=== PATIENT | male | born 1970 | race Caucasian/White ===

== ENCOUNTER 2017-06-10 16:12 | Inpatient (IN) | payer BC, OTHER ==
[~2017-06-10] VITALS: Ht 185.4 cm; Wt 127.0 kg
--- NOTE | 2017-06-10 17:55 | ERA ---
ER Documentation Chief Complaint Date/Time DATE: 06/10/17 TIME: 17:55 Chief Complaint cp HPI The patient is 47-year-old male, presenting to the ER because of left-sided chest pain radiating down to her left arm at 3:30 PM while he was shopping, . He had similar symptoms previously about a month ago when he had DC and required 2 stent PCI at the [facility]. He denies chest pain with exertion/vomiting/diaphoresis, nausea, abdominal pain, vomiting, dysuria, diarrhea. He used to smoke until 9 months ago, denies drinking Past Medical history: CAD, hypertension, dyslipidemia Past surgical history: Two stent PCI ROS All systems reviewed and are negative except as per history of present illness. Medications Home Meds Reported Medications Clopidogrel Bisulfate* (Clopidogrel Bisulfate*) 75 Mg Tablet, 75 MG PO DAILY, # 30 TAB 06/10/17 Aspirin* (Steve Aspirin* Chew) 81 Mg Tab.chew, 81 MG PO DAILY, TAB.CHEW 06/10/17 Atorvastatin* (Atorvastatin*) 80 Mg Tablet, 40 MG PO QHS, #30 TAB 06/10/17 Carvedilol* (Carvedilol*) 6.25 Mg Tablet, 6.25 MG PO BID, #60 TAB 06/10/17 Isosorbide Mononitrate* (Isosorbide Mononitrate*) 60 Mg Tab.er.24h, 60 MG PO DAILY, TAB 06/10/17 Lisinopril* (Lisinopril*) 40 Mg Tablet, 40 MG PO DAILY, #30 TAB 06/10/17 Allergies Allergies: Coded Allergies: No Known Allergy (Unverified , 06/10/17) Physical Exam Vitals Vital Signs Date Time Temp Pulse Resp B/P Pulse Ox O2 Delivery O2 Flow Rate FiO2 06/10/17 20:20 97.8 81 18 174/81 99 06/10/17 18:06 Nasal Cannula 2 06/10/17 16:13 97.8 91 18 194/102 99 Physical Exam Const: No acute distress. Head: Atraumatic. Eyes: Normal Conjunctiva. ENT: Normal External Ears, Nose and Mouth. Neck: Full range of motion. No meningismus. Resp: Clear to auscultation bilaterally. Cardio: Regular rate and rhythm. Abd: Soft, non distended, normal bowel sounds, non tender. Skin: No petechiae or rashes. Back: No midline or flank tenderness. Ext: No cyanosis, or edema. Neur: Awake and alert. No focal deficit Psych: Normal Mood and Affect. Result Diagram: 06/10/17 1800 06/10/17 1800 Results 24 hrs Laboratory Tests Test 06/10/17 18:00 White Blood Count 12.110^3/ul Red Blood Count 5.2110^6/ul Hemoglobin 14.3g/dl Hematocrit 44.5% Mean Corpuscular Volume 85.4fl Mean Corpuscular Hemoglobin 27.4pg Mean Corpuscular Hemoglobin Concent 32.1g/dl Red Cell Distribution Width 13.2% Platelet Count 83827^3/UL Mean Platelet Volume 10.9fl Neutrophils % 67.6% Lymphocytes % 20.0% Monocytes % 7.9% Eosinophils % 3.3% Basophils % 0.7% Nucleated Red Blood Cells % 0.0/100WBC Neutrophils # 8.210^3/ul Lymphocytes # 2.410^3/ul Monocytes # 1.010^3/ul Eosinophils # 0.410^3/ul Basophils # 0.110^3/ul Nucleated Red Blood Cells # 0.010^3/ul Sodium Level 143mmol/L Potassium Level 4.4mmol/L Chloride Level 104mmol/L Carbon Dioxide Level 24mmol/L Anion Gap 19 Blood Urea Nitrogen 18mg/dl Creatinine 1.11mg/dl Glucose Level 97mg/dl Calcium Level 9.9mg/dl Troponin I < 0.012ng/ml Current Medications Medications (Trade) Dose Ordered Sig/Tatiana Route PRN Reason Start Time Stop Time Status Last Admin Dose Admin Aspirin (Aspirin) 325 mg ONCE ONCE PO 06/10/17 18:30 06/10/17 18:31 DC 06/10/17 18:20 Nitroglycerin (Nitroglycerin 2% Oint) 1 inch ONCE ONCE TD 06/10/17 18:30 06/10/17 18:31 DC 06/10/17 18:20 Procedures/[place] [id number] Radiology Main Line: [phone] DIAGNOSTIC IMAGING REPORT Patient: MAISHA DAVIS : 1970 Age: 47 Sex: M MR #: [id number] DOS: 06/10/17 1656 Ordering MD: BEAR KHAN MD Location: E/R Room/Bed: PROCEDURE: Chest x-ray CLINICAL INDICATION: Chest pain TECHNIQUE: Chest single view COMPARISON: None FINDINGS: The heart is normal in size. The pulmonary vessels are normal in caliber. The lungs are clear. The costophrenic angles are sharp. The visualized bony thorax is unremarkable. IMPRESSION: No acute cardiopulmonary disease. RPTAT: HH .Dustin Cardoza MD, MD Date Time Electronically viewed and signed by .Dustin Cardoza MD, MD on 06/10/2017 18:40 .W/ CC: BEAR KHAN MD EK hrs. Read by emergency physician Rate/Rhythm: Normal Sinus Rhythm 87 beats/min QRS, ST, T-waves: No ST elevation, no T inversion Impression: Normal EKG EK hrs. Read by emergency physician Rate/Rhythm: Normal Sinus Rhythm 81 beats/min QRS, ST, T-waves: No ST elevation, no T inversion Impression: Normal EKG .MEDICAL MAKING DECISION: The patient is a 47-year-old male, resenting to the ER because of recurrent chest pain that is concerning for ACS. He was treated with aspirin 325 mg p.o. and 1 inch of nitroglycerin and went to the chest wall with good response The differential diagnoses considered include but are not limited to acute coronary syndrome, acute myocardial infarction, pericarditis, pulmonary embolism , aortic dissection, pneumonia, pleural effusion, pneumothorax, GERD, chest wall pain. Consultation: I discussed the patient with his football pad repairer.He was evaluated by his football pad repairer in the ER who recommended admission and he plans to cardiac cath in tomorrow morning Departure Diagnosis: Primary Impression: Chest pain Condition: Stable Comments I discussed the findings with the patient. I discussed the patient with the on- call hospitalist Dr. Mejia at 7:35 PM who was made aware of the lab, the treatment, the patient condition and my discussion with the football pad repairer. The patient is admitted to BEAR KHAN MD Jun 10, 2017 17:55
--- NOTE | 2017-06-10 18:09 | CONS ---
Date/Time of Note Date/Time of Note DATE: 06/10/17 TIME: 18:03 Assessment/Plan Assessment/Plan Chief Complaint/Hosp Course 1. ACS 2. CAD: 3. Hx recent SD 4. here recent PCI LCX, RI. with known LAD, RCA disease 5. HTN 6. DM 7. DYSLIPIDEMIA 8. Morbid obesity REC: cont home meds including ASA/ PLAVIX /NTG INC COREG TO 12.5 BID AND INC TOLERATED. LHC/ shamika angio possible PCI in AM Risks benefits and alternatives of operative procedure discussed with the patient and his sister in detail. Risks including but not limited to risk of infection vascular complication bleeding complications SD stroke arrhythmia that his renal failure studies are discussed with the patient in detail. Increased risk of vascular complication due to his morbid obesity discussed with the patient. Patient has consented to procedure. We will schedule the procedure tomorrow morning. THANK YOU CHUY GA MD [facility] Problems: Consultation Date/Type/Reason Admit Date/Time Date of Consultation: Jun 10, 2017 Reason for Consultation CAD, CHEST PAIN Hx of Present Illness CC: Chest pain HPI: This is a pleasant 47 year old man with history of CAD, S/P PCI LCX, RI by me a few weeks ago at [facility], with konwn LAD and RCA disease who called me b.c he was having recurrent of his anginal chest pain today. pt was advised to come to ER. He is here in ER. dw/ his sister and his old records were reviewed. allergy. meds reviewed PMH: HTN CAD, S/P SD Apr 2017, PCI LCX, RI with LAD, RCA also > 70% stenosis morbid obesity and likely KURTIS Dyslipidemia DM PSH: PCI RI, PCI LCX family hx: father of SD ROS: as above ECG NSR normal Exam/Review of Systems Vital Signs Vitals Vital Signs Date Time Temp Pulse Resp B/P Pulse Ox O2 Delivery O2 Flow Rate FiO2 06/10/17 16:13 97.8 91 18 194/102 99 Exam General: obese. no acute distress HEENT: NC/AT. pupils are equal. round. NECK: NO JVD. no stridor. CV: RRR. systolic murmur; no gallop or rubs. PULM: no wheezing or rhonchi. GI: SOFT, NT, ND, no rebound or guarding Extremity: trace B/L LE edema. no clubbing. neuro: awake and alert, OX3. Psych: calm and pleasant rectal: deferred CHUY GA MD Jun 10, 2017 18:09
[2017-06-10 18:15] LABS: BASOPHIL # 0.1 10^3/ul (0.0-0.1); BASOPHILS % 0.7 % (0.0-2.0); EOSINOPHILS # 0.4 10^3/ul (0.0-0.5); EOSINOPHILS % 3.3 % (0.0-7.0); HEMATOCRIT 44.5 % (42.0-52.0); HEMOGLOBIN 14.3 g/dl (14.0-18.0); LYMPHOCYTES # 2.4 10^3/ul (0.8-2.9); MEAN CORPUSCULAR HEMOGLOBIN 27.4 pg (29.0-33.0); MEAN CORPUSCULAR HGB CONC 32.1 g/dl (32.0-37.0); MEAN CORPUSCULAR VOLUME 85.4 fl (82.0-101.0); MEAN PLATELET VOLUME 10.9 fl (7.4-10.4); MONOCYTES % 7.9 % (0.0-11.0); NEUTROPHIL # 8.2 10^3/ul (1.6-7.5); NEUTROPHILS % 67.6 % (39.0-77.0); PLATELET COUNT 215 10^3/UL (140-415); RED BLOOD COUNT 5.21 10^6/ul (4.70-6.10); RED CELL DISTRIBUTION WIDTH 13.2 % (11.5-14.5); WHITE BLOOD COUNT 12.1 10^3/ul (4.8-10.8)
[2017-06-10] MEDS ORDERED: NITROGLYCERIN 2% 1 GM OINT PKT TD ONE (18:30)
[2017-06-10] MEDS ORDERED: ASPIRIN 325 MG TAB PO ONE (18:30)
--- NOTE | 2017-06-10 18:40 | RADRPT ---
PROCEDURE: Chest x-ray CLINICAL INDICATION: Chest pain TECHNIQUE: Chest single view COMPARISON: None FINDINGS: The heart is normal in size. The pulmonary vessels are normal in caliber. The lungs are clear. Th e costophrenic angles are sharp. The visualized bony thorax is unremarkable. IMPRESSION: No acute cardiopulmonary disease. RPTAT: HH .Dustin Cardoza MD, Date Time Electronically viewed and signed by .Dustin Cardoza MD, MD on 06/10/2017 18:40 .W/
[2017-06-10 18:45] LABS: ANION GAP 19 (8-16); BLOOD UREA NITROGEN 18 mg/dl (7-20); CALCIUM 9.9 mg/dl (8.4-10.2); CARBON DIOXIDE 24 mmol/L (21-31); CHLORIDE 104 mmol/L (97-110); CREATININE 1.11 mg/dl (0.61-1.24); GLUCOSE 97 mg/dl (70-220); POTASSIUM 4.4 mmol/L (3.5-5.1); SODIUM 143 mmol/L (135-144)
[2017-06-10] MEDS ORDERED: ISOS60TA PO (18:48)
[2017-06-10] MEDS ORDERED: LISI40TA9 PO (18:48)
[2017-06-10] MEDS ORDERED: CARV6.2579 PO (18:48)
[2017-06-10] MEDS ORDERED: ATOR80TA75 PO (18:49)
[2017-06-10] MEDS ORDERED: CLOP75TA4 PO (18:50)
[2017-06-10] MEDS ORDERED: ASPI-699 PO (18:50)
[2017-06-10 18:54] LABS: TROPONIN-I < 0.012 ng/ml (0.00-0.12)
[2017-06-10 20:20] VITALS: TEMP 97.8
[2017-06-10] MEDS ORDERED: SOD CHLORIDE 0.9% 1,000 ML IV SCH (23:07)
[2017-06-10] MEDS ORDERED: ONDANSETRON 4 MG INJ IV PRN (23:30)
[2017-06-10] MEDS ORDERED: NITROGLYCERIN (SL) 0.4 MG TAB SL PRN (23:30)
[2017-06-10] MEDS ORDERED: NACL 0.9% 3 ML SYG IV SCH (23:30)
[2017-06-10] MEDS ORDERED: ACETAMINOPHEN 325 MG TAB PO PRN (23:30)
[2017-06-10] MEDS ORDERED: morphine 2 MG INJ IV PRN (23:30)
[2017-06-10 23:50] LABS: CREATINE KINASE 82 IU/L (23-200)
[2017-06-11] VITALS (34 sets, daily range): BP systolic 91–168; BP diastolic 44–107; PULSE 57–83; RESP 10–20; Ht 185.4 cm; Wt 127.0 kg
[2017-06-11 00:04] LABS: CK-MB 1.23 ng/ml (0.0-2.4); TROPONIN-I < 0.012 ng/ml (0.00-0.12)
--- NOTE | 2017-06-11 02:27 | HP ---
Date/Time of Note Date/Time of Note DATE: 06/11/17 TIME: 02:14 Assessment/Plan VTE Prophylaxis VTE Prophylaxis Intervention: SCD's Lines/Catheters IV Catheter Type (from Nrs): Saline Lock Assessment/Plan Chief Complaint/Hosp Course This is a 47-year-old male being admitted to the telemetry floor for: #1 chest pain: Rule out ACS. Trend cardiac enzymes 3, first set negative. Patient recently had cardiac stents placed. He was seen and evaluated by Dr. Emery in the ED who recommended cardiac catheterization in the a.m. at the current time we will cont home meds including ASA/ PLAVIX /NTG Will increase Coreg to 12.5 twice daily. Left heart catheterization in the a.m. with possible angioplasty. Further treatment recommendations as per cardiology #2 Coronary disease: Continue aspirin/Plavix, see #1 #3 hypertension: We will continue patient's home medications #4 obesity: We will check a hemoglobin A1c lipid panel and TSH #5 DVT GI prophylaxis: SCDs, acid fortino Further treatment strategy will be implemented as per the clinical course Problems: HPI/ROS Admit Date/Time Admit Date/Time Hx of Present Illness Chief complaint: Left-sided chest pain The patient is 47-year-old male, presenting to the ER because of left-sided chest pain radiating down to his left arm at 3:30 PM while he was shopping, . He states that at that time he also is experiencing some diaphoresis. He had similar symptoms previously about a month ago when he had GA and required 2 stent PCI at the [facility]. Currently he denies chest pain with exertion/vomiting/diaphoresis, nausea, abdominal pain, vomiting, dysuria, diarrhea. Allergies: NKDA Medications: See MAR ROS Const: As per HPI Eyes : No pain discharge or redness or change in visual acuity ENT: No pain, sore throat, congestion, congestion, dysphagia or discharge Respiratory: No shortness of breath, cough, sputum, wheezing, or pleuritic pain Cardiovascular: As per HPI GI : no change in appetite, abdominal pain, nausea, vomiting, diarrhea, constipation, or change in the color his stool Genitourinary: No dysuria, hematuria, flank pain , discharge or CVA tenderness Musculoskeletal: No joint pain, back pain, neck pain, restricted range of motion in neck or joints Skin: No rash, bruising or hives Neuro: No headache, dizziness, syncope, seizure, focal weakness Endocrine: No polyuria, polydipsia, temperature intolerance Psych: No hallucination, depression, anxiety or suicidal ideation PMH/Family/Social Past Medical History CAD, hypertension, dyslipidemia Past Surgical History Two stent PCI Family History Significant Family History: heart disease (Father: GA) Social History Alcohol Use: none Smoking Status: Former smoker Drug Use: none Exam/Review of Systems Vital Signs Vitals Vital Signs Date Time Temp Pulse Resp B/P Pulse Ox O2 Delivery O2 Flow Rate FiO2 06/10/17 20:20 97.8 81 18 174/81 99 06/10/17 18:06 Nasal Cannula 2 Exam Exam General: Patient is a pleasant, obese male sitting in bed in no acute distress HEENT: Atraumatic, normocephalic. The pupils are equal, round and reactive. Extraocular motor are intact Neck: Supple with full range of motion. No rigidity or meningismus Chest: Nontender Lungs: Clear to auscultation bilaterally no crackles rales or wheezing Heart: Normal S1-S2, Regular rhythm and rate. Abdomen: Soft , nontender, nondistended , bowel sounds are present. No guarding no rebound tenderness , No masses or organomegaly. No costovertebral temporal angle mass Extremities: Normal to inspection, no edema no cyanosis Neurologic: Normal mental status, speech normal, cranial nerves II through XII are intact, motor and sensory are intact, no focal weakness Additional Comments PROCEDURE: Chest x-ray CLINICAL INDICATION: Chest pain TECHNIQUE: Chest single view COMPARISON: None FINDINGS: The heart is normal in size. The pulmonary vessels are normal in caliber. The lungs are clear. The costophrenic angles are sharp. The visualized bony thorax is unremarkable. IMPRESSION: No acute cardiopulmonary disease. RPTAT: HH .Dustin Cardoza MD, Date Time Electronically viewed and signed by .Dustin Cardoza MD, on 06/10/2017 18:40 .W/ CC: BEAR KHAN MD EKG: Rate/Rhythm: Normal Sinus Rhythm 87 beats/min QRS, ST, T-waves: No ST elevation, no T inversion Impression: Normal EKG As per ED physician documentation Labs Result Diagram: 06/10/17 1800 06/10/17 1800 Medications Medications Current Medications Sodium Chloride (NS) 1,000 ml @ 70 mls/hr [id number] IV ; Start 06/10/17 at 23:07 Ondansetron HCl (Zofran Inj) 4 mg Q6H PRN IV NAUSEA AND/OR VOMITING; Start at 23:30 Nitroglycerin (Nitroglycerin (Sl Tab) 0.4 Mg) 1 tab Q5M PRN SL CHEST PAIN; Start 06/10/17 at 23:30 Acetaminophen (Tylenol Tab) 650 mg Q6H PRN PO PAIN LEVEL 1-3 OR FEVER; Start 06/10/17 at 23:30 Morphine Sulfate (morphine) 2 mg Q4H PRN IV PAIN LEVEL 7-10; Start 06/10/17 at 23:30 Famotidine (Pepcid Iv) 20 mg Q12 IV ; Start 06/10/17 at 23:30 ASCENCION SULLIVAN Jun 11, 2017 02:27
[2017-06-11] MEDS: FAMOTIDINE 20 MG INJ IV SCH ×2 (02:53→11:03)
[2017-06-11] MEDS: LISINOPRIL 20 MG TAB PO SCH ×2 (06:29→11:03)
[2017-06-11] MEDS ORDERED: MIDAZOLAM 1 MG/ML 2 ML INJ ONE (07:16)
[2017-06-11] MEDS ORDERED: IODIXANOL LOCM 100 ML BTL ONE ×4 (07:16→09:49)
[2017-06-11] MEDS ORDERED: LIDOCAINE 1% (MDV) 20 ML INJ ONE (07:16)
[2017-06-11] MEDS ORDERED: FENTAnyl 50 MCG/ML VIAL ONE (07:17)
[2017-06-11 07:34] LABS: BASOPHIL # 0.1 10^3/ul (0.0-0.1); BASOPHILS % 0.9 % (0.0-2.0); EOSINOPHILS # 0.4 10^3/ul (0.0-0.5); EOSINOPHILS % 3.7 % (0.0-7.0); HEMATOCRIT 41.1 % (42.0-52.0); HEMOGLOBIN 12.9 g/dl (14.0-18.0); LYMPHOCYTES # 2.8 10^3/ul (0.8-2.9); LYMPHOCYTES % 29.1 % (15.0-51.0); MEAN CORPUSCULAR HGB CONC 31.4 g/dl (32.0-37.0); MEAN PLATELET VOLUME 11.1 fl (7.4-10.4); MONOCYTES % 10.1 % (0.0-11.0); NEUTROPHIL # 5.3 10^3/ul (1.6-7.5); NEUTROPHILS % 55.9 % (39.0-77.0); PLATELET COUNT 187 10^3/UL (140-415); RED BLOOD COUNT 4.78 10^6/ul (4.70-6.10); RED CELL DISTRIBUTION WIDTH 13.4 % (11.5-14.5); WHITE BLOOD COUNT 9.5 10^3/ul (4.8-10.8)
[2017-06-11] MEDS ORDERED: NITROGLYCERIN (IC) 100 MCG/ML INJ ONE (07:38)
[2017-06-11] MEDS ORDERED: VERAPAMIL 5 MG INJ ONE (07:38)
[2017-06-11] MEDS ORDERED: BIVALIRUDIN 250MG /NS 50 ML 50 ML IVPB ONE ×2 (07:41→08:18)
[2017-06-11 07:56] LABS: INR 1.05; PROTIME 13.7 Sec (12.2-14.2); PT RATIO 1.1
[2017-06-11 08:00] LABS: ALBUMIN/GLOBULIN RATIO 1.25; BILIRUBIN,INDIRECT 0.4 mg/dl (0-1.1); BILIRUBIN,TOTAL 0.4 mg/dl (0.2-1.3); CALCIUM 9.6 mg/dl (8.4-10.2); CHOL/HDL RATIO 5.4 RATIO; CREATININE 0.98 mg/dl (0.61-1.24); MAGNESIUM 1.9 mg/dl (1.7-2.5); TOTAL PROTEIN 7.2 g/dl (6.1-8.1)
[2017-06-11 08:02] LABS: CREATINE KINASE 70 IU/L (23-200)
[2017-06-11] MEDS ORDERED: ASPIRIN 325 MG TAB ONE (08:13)
[2017-06-11] MEDS ORDERED: CLOPIDOGREL 75 MG TAB ONE ×2 (08:13→09:56)
[2017-06-11 08:14] LABS: CK-MB 1.09 ng/ml (0.0-2.4); TROPONIN-I < 0.012 ng/ml (0.00-0.12)
[2017-06-11 08:31] LABS: THYROID STIMULATING HORMONE 2.02 MIU/L (0.465-4.680)
[2017-06-11] MEDS ORDERED: CLOPIDOGREL 300 MG TAB ONE (10:11)
--- NOTE | 2017-06-11 10:28 | OPR ---
Date/Time of Note Date/Time of Note DATE: 06/11/17 TIME: 10:12 Operative Report Procedure Date: Jun 11, 2017 Preoperative Diagnosis ACS Postoperative Diagnosis same Surgeon see signature line Fishing Line Winding Machine Operator N/A Anesthesia Type: moderate sedation Estimated Blood Loss: minimal Transfusion none Specimen N/A Grafts/Implants none Complications none Procedure Description Steak Tenderizer Machine: Chuy Emery MD Indication: ACS Procure performed: #1 left heart catheterization and selective right and left coronary angiogram. #2 Right femoral angiogram and closure using a perclose device 3. complex but Successful PTCA and stenting of proximal RCA using a 4X16 mm synergy MARIA G, distal RCA using a 3x34 mm and 3.5x12 mm Banner MARIA G. 4. Complex but Successful PTCA/ stenting of JANEEN using a 2.25x12 mm Dalton MARIA G 5. PTCA of ostial and proximal PDA 6. Moderate sedation for more than 120 minutes Findings: 1. Left main: is normal and birfurcates to LAD & LCX. 2. LAD: has 50% % stenosis at proximal LAD, and 60-70 % stenosis at mid LAD. Diagonal one is large with 60% ostial stenosis. D2 is moderate with 60-70% proximal stenosis. 3. Left circumflex artery: is large nondominant. it has 50-60% osital stenosis. previous stent in OM is patent. 4. RI: is large and has 40% OSTIAL stenosis. previous proximal stent is patent. 5. RCA: is very large and dominant. it has probably 90% calcified stenosis proximally ----> 0% post PCI. mid RCA has diffuse 50% stenosis. distal RCA had 90% stenosis ----> 0% post PCI. JANEEN has 99% ---> 0% post PCI. PDA ostially has 99% calcified stenosis --->30% post PTCA 90% proximal stenosis ---> 20%. 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 Procedure in detail: Written informed consent with obtained after risks benefits and alternatives discussed with the patient in detail. risks including but not limited to risk of infection vascular complications, bleeding complications, NV stroke arrhythmia renal failure at even were discussed with the patient in detail. Patient was brought into the cardiac clinical lab assistant and placed in supine position. Right and left groin area was prepped and draped in regular sterile fashion and then he was in anesthetized using 1% lidocaine. Right femoral artery was cannulated and using modified seldinger technique a 6 Ghanaian sheath was placed in the right femoral artery. Right femoral angiogram was performed. JL4 catheter was advanced and engaged into the left main coronary artery and angiographic view was obtained. The JR4 catheter was advanced and engaged right coronary artery angiographic view was obtained. Pigtail was advanced to engage the left ventricle hemodynamics as recorded by pullback aortic pressure was measured. At this time we decided to perform PCI of the RCA. An AL 3.5 guiding head was advanced to engage the RCA artery. BMW wire was used and advanced across the lesion and placed distal to the artery. I used a 2.5 x 12 mm balloon which was placed across the lesion and predilated the vessel. Another BMW wire was used but could not cross into the PDA. I used the PGY visual advance and crossed into the PDA with great difficulty. Try to advance to 2.5 x 12 mm balloon into the PDA which was unsuccessful and the wires got kicked out. Then I had to do multiple angioplasty of the distal right coronary artery and posterolateral artery using a noncompliant balloon. I had to request the posterior descending artery using the wire. Then I used a new 2.0 x 15 mm balloon and this area was dilated.. And I tried to advance a 2.25 x 12 mm stent into the PDA which was unsuccessful and the guide cath kicked out again. This area had to be rewired and and angioplastied again to predilate the vessel. With great difficulty was able to advance a 2.25 x 12 mm stent across the JANEEN. It was deployed at 14 kavya. Then I used a 3.0 x 34 mm Dalton occluding the stent which was placed across the distal right coronary artery with a great difficulty and deployed it at 16 kavya. Then I used another 3.5 x 12 mm dalton drug-eluting stent which was placed proximal to this stent and overlapping with it and deployed it at 14 kavya. Stent balloon was used and advanced and previous stents was postdilated up to 16 kavya. Then I used a 3.5 x 12 mm noncompliant balloon which was placed within the stent and postdilated the stent up to 18 kavya. The same balloon was used to dilate the proximal calcified lesion as well. It was decided to change the guide to a JR4 guide because the AL was deep strolling across the proximal calcified lesion. Wire and guide were removed and another JR4 guide was advanced into the right coronary artery. BMW will use multiple times across the lesion. However every time I tried to advance a drug-eluting stent the guide got kicked out due to severe calcification and pain at the proximal right renal artery. I used a guide liner. With the assistance of a guideline and I was able to advance a 4.0 x 16 mm Synergy drug-eluting stent across the proximal right coronary artery and a stent was deployed at 16 kavya. Final angiographic view was obtained which showed DURAN-3 flow no evidence of dissection and no significant residual stenosis at the site of the stent. perclose was successfully deployed. Patient tolerated the procedure well with no complication. Patient was transferred to ICU in stable condition. Conclusions: Successful PTCA stenting of the multiple areas of right coronary artery from up to 99% stenosis to no significant residual stenosis using a multiple drug-eluting stents. Recommendations: Aggressive medical therapy. aspirin indefinitely dual antiplatlet therapy with aspirin and Plavix ICU care overnight. will consider complex PCI LAD/ Diag as outpt only if pt remains symptomatic CHUY EMERY MD Jun 11, 2017 10:28
[2017-06-11] MEDS: ASPIRIN 81 MG TAB PO SCH (10:44)
[2017-06-11] MEDS: CLOPIDOGREL 75 MG TAB PO SCH (10:44)
--- NOTE | 2017-06-11 10:48 | CONS ---
Date/Time of Note Date/Time of Note DATE: 06/11/17 TIME: 10:46 Consult Date/Type/Reason Admit Date/Time Jun 10, 2017 at 19:35 Initial Consult Date 06/10/17 Type of Consultation: cardiology Subjective d/w staff pt with no more chest pain over night. s./p complex PCI RCA, PDA, JANEEN. mild groin pain O: General: morbidly obese. no acute distress HEENT: NC/AT. pupils are equal. round. NECK: NO JVD. no stridor. CV: RRR. systolic murmur; no gallop or rubs. PULM: no wheezing or rhonchi. GI: SOFT, NT, ND, no rebound or guarding Extremity: trace B/L LE edema. no clubbing. neuro: awake and alert, OX3. Psych: calm and pleasant rectal: deferred vascular: R fem s/p perclose. Objective Vital Signs Date Time Temp Pulse Resp B/P Pulse Ox O2 Delivery O2 Flow Rate FiO2 06/11/17 04:00 69 06/11/17 02:24 98.0 20 137/72 95 06/10/17 18:06 Nasal Cannula 2 Intake and Output 06/10/17 06/10/17 06/11/17 15:00 23:00 07:00 Intake Total 580 ml Output Total 200 ml Balance 380 ml Results/Medications Result Diagram: 06/11/17 0702 06/11/17 0705 Results 24 hrs Laboratory Tests Test 06/10/17 18:00 06/10/17 23:10 06/11/17 06:59 06/11/17 07:01 White Blood Count 12.1 H Red Blood Count 5.21 Hemoglobin 14.3 Hematocrit 44.5 Mean Corpuscular Volume 85.4 Mean Corpuscular Hemoglobin 27.4 L Mean Corpuscular Hemoglobin Concent 32.1 Red Cell Distribution Width 13.2 Platelet Count 215 Mean Platelet Volume 10.9 H Neutrophils % 67.6 Lymphocytes % 20.0 Monocytes % 7.9 Eosinophils % 3.3 Basophils % 0.7 Nucleated Red Blood Cells % 0.0 Neutrophils # 8.2 H Lymphocytes # 2.4 Monocytes # 1.0 H Eosinophils # 0.4 Basophils # 0.1 Nucleated Red Blood Cells # 0.0 Sodium Level 143 Potassium Level 4.4 Chloride Level 104 Carbon Dioxide Level 24 Anion Gap 19 H Blood Urea Nitrogen 18 Creatinine 1.11 Glucose Level 97 Calcium Level 9.9 Troponin I < 0.012 < 0.012 Creatine Kinase 82 Creatine Kinase Index 1.5 Creatinine Kinase MB (Mass) 1.23 Free Thyroxine 1.26 Prothrombin Time 13.7 Prothrombin Time Ratio 1.1 INR International Normalized Ratio 1.05 Test 06/11/17 07:02 06/11/17 07:05 White Blood Count 9.5 # Red Blood Count 4.78 Hemoglobin 12.9 L Hematocrit 41.1 L Mean Corpuscular Volume 86.0 Mean Corpuscular Hemoglobin 27.0 L Mean Corpuscular Hemoglobin Concent 31.4 L Red Cell Distribution Width 13.4 Platelet Count 187 Mean Platelet Volume 11.1 H Neutrophils % 55.9 Lymphocytes % 29.1 Monocytes % 10.1 Eosinophils % 3.7 Basophils % 0.9 Nucleated Red Blood Cells % 0.0 Neutrophils # 5.3 Lymphocytes # 2.8 Monocytes # 1.0 H Eosinophils # 0.4 Basophils # 0.1 Nucleated Red Blood Cells # 0.0 Hemoglobin A1c 5.5 Creatine Kinase 70 Creatine Kinase Index 1.6 Creatinine Kinase MB (Mass) 1.09 Troponin I < 0.012 Sodium Level 143 Potassium Level 4.0 Chloride Level 106 Carbon Dioxide Level 28 Anion Gap 13 Blood Urea Nitrogen 18 Creatinine 0.98 Glucose Level 90 Calcium Level 9.6 Magnesium Level 1.9 Total Bilirubin 0.4 Direct Bilirubin 0.00 Indirect Bilirubin 0.4 Aspartate Amino Transf (AST/SGOT) 25 Alanine Aminotransferase (ALT/SGPT) 70 H Alkaline Phosphatase 52 B-Type Natriuretic Peptide 85 Total Protein 7.2 Albumin 4.0 Globulin 3.20 Albumin/Globulin Ratio 1.25 Triglycerides Level 122 Cholesterol Level 114 LDL Cholesterol, Calculated 69 HDL Cholesterol 21 L Cholesterol/HDL Ratio 5.4 Thyroid Stimulating Hormone (TSH) 2.020 Medications Current Medications Ondansetron HCl (Zofran Inj) 4 mg Q6H PRN IV NAUSEA AND/OR VOMITING; Start at 23:30 Nitroglycerin (Nitroglycerin (Sl Tab) 0.4 Mg) 1 tab Q5M PRN SL CHEST PAIN; Start 06/10/17 at 23:30 Acetaminophen (Tylenol Tab) 650 mg Q6H PRN PO PAIN LEVEL 1-3 OR FEVER; Start 06/10/17 at 23:30 Morphine Sulfate (morphine) 2 mg Q4H PRN IV PAIN LEVEL 7-10; Start 06/10/17 at 23:30 Famotidine (Pepcid Iv) 20 mg Q12 IV Last administered on 06/11/17 02:53; Admin Dose 20 MG; Start 06/10/17 at 23:30 Aspirin (Aspirin) 81 mg DAILY PO ; Start 06/11/17 at 09:00 Atorvastatin Calcium (Lipitor) 40 mg QHS PO ; Start 06/11/17 at 21:00 Clopidogrel Bisulfate (plaVIX) 75 mg DAILY PO ; Start 06/11/17 at 09:00 Isosorbide Mononitrate (Imdur) 60 mg DAILY PO ; Start 06/11/17 at 09:00 Lisinopril (Zestril) 40 mg DAILY PO Last administered on 06/11/17 06:29; Admin Dose 40 MG; Start 06/11/17 at 02:30 Carvedilol (Coreg) 12.5 mg BID PO Last administered on 06/11/17 06:28; Admin Dose 12.5 MG; Start 06/11/17 at 02:30 Miscellaneous Information Hold all Metformin ... ONCE XX ; Start 06/11/17 at 10 :30; Stop 06/13/17 at 10:29 Sodium Chloride (NS) 1,000 ml @ 125 mls/hr Q8H IV ; Start 06/11/17 at 10:07; Stop 06/12/17 at 02:06 Assessment/Plan Chief Complaint/Hosp Course 1. ACS 2. CAD: S/P multivessel PCI 3. HTN 4. Obesity 5. dyslipidemia 6. ? KURTIS ] cont ASA./ PLAVIX COREG LISINOPRIL STATIN IMDUR. DC planning tomorrow. Problems: CHUY GA MD Jun 11, 2017 10:48
[2017-06-11] MEDS: ISOSORBIDE MONONITRATE(SR)60 MG TAB PO SCH (11:02)
[2017-06-11] MEDS: SOD CHLORIDE 0.9% 1,000 ML IV SCH ×2 (11:02→18:09)
--- NOTE | 2017-06-11 13:48 | RADRPT ---
Echocardiogram Report Patient Name: RYAN FERRERA Gender: Male Date: 1970 Study Date: 11-Jun-2017 Angle Furnaceman: GARRY Location: 102 Ref. Physician: CHUY EMERY Quality: Adequate Procedures: Transthoracic echocardiogram with complete 2D, M-Mode, and doppler examination. Indications: S/P PCI. 2D/M Mode Doppler Measurement Value Normal Ranges Measurement Value Normal Ranges AoR Diam MM 3.5 cm AMANDA Vmax 3.2 cm2 ACS MM 2.0 cm AMANDA VTI 3.2 cm2 LA/Ao MM 0.9 AV Peak Kareem 1.1 m/sec LA Dimen MM 3.1 cm AV Peak PG 4.4 mmHg LVIDd 2D 5.0 3.5 - 5.6 cm LVOT Peak Kareem 0.9 m/sec LVIDs 2D 3.6 2.1 - 4.1 cm LVOT Peak PG 3.6 mmHg LVPWd 2D 1.1 0.6 - 1.1 cm MV E Peak Kareem 0.7 m/sec IVSd 2D 1.1 0.6 - 1.1 cm MV A Peak Kareem 0.6 m/sec EDV 2D 117.9 cm3 MV E/A 1.2 ESV 2D 45.7 cm3 MV Decel Time 182 msec EF 2D 55.0 50.0 - 65.0 % MV Decel E[place] 4 LVOT Diam 2.1 cm MV E/A 1.2 TR Peak Kareem 1.7 m/sec TR Peak PG 11.5 mmHg Findings Left Ventricle: Normal left ventricular systolic function. Normal left ventricular cavity size. Normal left ventricular wall thickness. Ejection fraction is visually estimated at 60 %. Right Ventricle: Normal right ventricular size. Normal right ventricular systolic function. Left Atrium: The left atrium is normal in size. Right Atrium: The right atrium is normal in size. Mitral Valve: Normal appearance of the mitral valve. Normal appearance and function of the mitral valve with trace physiologic regurgitation. Aortic Valve: Normal appearance of the aortic valve. No significant aortic stenosis or insufficiency. Normal trileaflet aortic valve structure. Tricuspid Valve: Estimated peak PA systolic pressure 22 mmHg. There is trace tricuspid regurgitation. Pulmonic Valve: There is mild pulmonic regurgitation. Pericardium: Normal pericardium with no significant pericardial effusion. Aorta: Not well visualized. IVC: Normal size and normal respiratory collapse consistent visually with normal right atrial pressure. Conclusions 1.Normal left ventricular systolic function. Normal left ventricular cavity size. Normal left ventricular wall thickness. Ejection fraction is visually estimated at 60 %. 2.Normal appearance of the mitral valve. Normal appearance and function of the mitral valve with trace physiologic regurgitation. 3.Normal appearance of the aortic valve. No significant aortic stenosis or insufficiency. Normal trileaflet aortic valve structure. 4.Estimated peak PA systolic pressure 22 mmHg. There is trace tricuspid regurgitation. Electronically Signed By: Chuy Emery 11-Jun-2017 13:47:50 -0700 Patient Name: RYAN FERRERA Study Date: 11-Jun-2017 [id number]
[2017-06-11] MEDS: FAMOTIDINE 20 MG TAB PO SCH (20:56)
[2017-06-11] MEDS ORDERED: ATORVASTATIN 40 MG TAB PO SCH (21:00)
[2017-06-12] VITALS (16 sets, daily range): BP systolic 102–142; BP diastolic 52–84; PULSE 58–84; RESP 11–16
[2017-06-12 06:10] LABS: BASOPHIL # 0.1 10^3/ul (0.0-0.1); BASOPHILS % 0.7 % (0.0-2.0); EOSINOPHILS # 0.3 10^3/ul (0.0-0.5); EOSINOPHILS % 2.7 % (0.0-7.0); HEMATOCRIT 39.5 % (42.0-52.0); HEMOGLOBIN 12.4 g/dl (14.0-18.0); LYMPHOCYTES % 19.3 % (15.0-51.0); MEAN CORPUSCULAR HEMOGLOBIN 27.5 pg (29.0-33.0); MEAN CORPUSCULAR HGB CONC 31.4 g/dl (32.0-37.0); MEAN CORPUSCULAR VOLUME 87.6 fl (82.0-101.0); MEAN PLATELET VOLUME 11.1 fl (7.4-10.4); MONOCYTE # 0.9 10^3/ul (0.3-0.9); MONOCYTES % 8.9 % (0.0-11.0); NEUTROPHIL # 7.1 10^3/ul (1.6-7.5); NEUTROPHILS % 67.9 % (39.0-77.0); PLATELET COUNT 191 10^3/UL (140-415); RED BLOOD COUNT 4.51 10^6/ul (4.70-6.10); RED CELL DISTRIBUTION WIDTH 13.5 % (11.5-14.5); WHITE BLOOD COUNT 10.4 10^3/ul (4.8-10.8)
[2017-06-12 06:54] LABS: ALBUMIN/GLOBULIN RATIO 1.29; BILIRUBIN,INDIRECT 0.5 mg/dl (0-1.1); BILIRUBIN,TOTAL 0.5 mg/dl (0.2-1.3); CALCIUM 8.9 mg/dl (8.4-10.2); CREATININE 1.05 mg/dl (0.61-1.24); MAGNESIUM 1.9 mg/dl (1.7-2.5); TOTAL PROTEIN 7.1 g/dl (6.1-8.1)
--- NOTE | 2017-06-12 07:39 | CONS ---
Date/Time of Note Date/Time of Note DATE: 06/12/17 TIME: 07:38 Consult Date/Type/Reason Admit Date/Time Jun 10, 2017 at 19:35 Initial Consult Date 06/10/17 Type of Consultation: cardiology Subjective d/w staff and rhythm was reviewed. pt remains in NSR. pt with no more chest pain over night. s./p complex PCI RCA, PDA, JANEEN. NO groin pain and was able to walk last night. O: General: morbidly obese. no acute distress HEENT: NC/AT. pupils are equal. round. NECK: NO JVD. no stridor. CV: RRR. systolic murmur; no gallop or rubs. PULM: no wheezing or rhonchi. GI: SOFT, NT, ND, no rebound or guarding Extremity: trace B/L LE edema. no clubbing. neuro: awake and alert, OX3. Psych: calm and pleasant rectal: deferred vascular: R fem no bruit or hematoma Objective Vital Signs Date Time Temp Pulse Resp B/P Pulse Ox O2 Delivery O2 Flow Rate FiO2 06/12/17 06:00 72 142/83 95 06/12/17 05:00 12 06/12/17 04:00 98.6 06/12/17 03:00 Nasal Cannula 06/11/17 17:30 2.0 Intake and Output 06/11/17 06/11/17 06/12/17 15:00 23:00 07:00 Intake Total 890 ml 855 ml Output Total 750 ml 350 ml 450 ml Balance 140 ml 505 ml -450 ml Results/Medications Result Diagram: 06/12/17 0534 06/12/17 0534 Results 24 hrs Laboratory Tests Test 06/11/17 15:03 06/12/17 05:34 Bedside Glucose 111 White Blood Count 10.4 Red Blood Count 4.51 L Hemoglobin 12.4 L Hematocrit 39.5 L Mean Corpuscular Volume 87.6 Mean Corpuscular Hemoglobin 27.5 L Mean Corpuscular Hemoglobin Concent 31.4 L Red Cell Distribution Width 13.5 Platelet Count 191 Mean Platelet Volume 11.1 H Neutrophils % 67.9 Lymphocytes % 19.3 Monocytes % 8.9 Eosinophils % 2.7 Basophils % 0.7 Nucleated Red Blood Cells % 0.0 Neutrophils # 7.1 Lymphocytes # 2.0 Monocytes # 0.9 Eosinophils # 0.3 Basophils # 0.1 Nucleated Red Blood Cells # 0.0 Sodium Level 145 H Potassium Level 4.0 Chloride Level 106 Carbon Dioxide Level 27 Anion Gap 16 Blood Urea Nitrogen 12 Creatinine 1.05 Glucose Level 95 Calcium Level 8.9 Magnesium Level 1.9 Total Bilirubin 0.5 Direct Bilirubin 0.00 Indirect Bilirubin 0.5 Aspartate Amino Transf (AST/SGOT) 39 # Alanine Aminotransferase (ALT/SGPT) 66 Alkaline Phosphatase 54 Total Protein 7.1 Albumin 4.0 Globulin 3.10 Albumin/Globulin Ratio 1.29 Medications Current Medications Ondansetron HCl (Zofran Inj) 4 mg Q6H PRN IV NAUSEA AND/OR VOMITING; Start at 23:30 Nitroglycerin (Nitroglycerin (Sl Tab) 0.4 Mg) 1 tab Q5M PRN SL CHEST PAIN; Start 06/10/17 at 23:30 Acetaminophen (Tylenol Tab) 650 mg Q6H PRN PO PAIN LEVEL 1-3 OR FEVER; Start 06/10/17 at 23:30 Morphine Sulfate (morphine) 2 mg Q4H PRN IV PAIN LEVEL 7-10; Start 06/10/17 at 23:30 Aspirin (Aspirin) 81 mg DAILY PO ; Start 06/11/17 at 09:00 Atorvastatin Calcium (Lipitor) 40 mg QHS PO Last administered on 06/11/17 20: 56; Admin Dose 40 MG; Start 06/11/17 at 21:00 Clopidogrel Bisulfate (plaVIX) 75 mg DAILY PO ; Start 06/11/17 at 09:00 Isosorbide Mononitrate (Imdur) 60 mg DAILY PO Last administered on 06/11/17 11:02; Admin Dose 60 MG; Start 06/11/17 at 09:00 Lisinopril (Zestril) 40 mg DAILY PO Last administered on 06/11/17 11:03; Admin Dose 40 MG; Start 06/11/17 at 02:30 Carvedilol (Coreg) 12.5 mg BID PO Last administered on 06/11/17 20:57; Admin Dose 12.5 MG; Start 06/11/17 at 02:30 Miscellaneous Information (* Miscellaneous Pharmacy Order) Hold all Metformin ... ONCE XX ; Start 06/11/17 at 10:30; Stop 06/13/17 at 10:29 Famotidine (Pepcid) 20 mg BID PO Last administered on 06/11/17t 20:56; Admin Dose 20 MG; Start 06/11/17 at 21:00 Assessment/Plan Chief Complaint/Hosp Course 1. ACS 2. CAD: S/P multivessel PCI 3. HTN 4. Obesity 5. dyslipidemia 6. ? KURTIS cont ASA./ PLAVIX COREG LISINOPRIL STATIN IMDUR. DC planning today. Problems: CHUY GA MD Jun 12, 2017 07:39
[2017-06-12] MEDS: CLOPIDOGREL 75 MG TAB PO SCH (08:05)
[2017-06-12] MEDS: ASPIRIN 81 MG TAB PO SCH (08:06)
[2017-06-12] MEDS: LISINOPRIL 20 MG TAB PO SCH (08:07)
[2017-06-12] MEDS: FAMOTIDINE 20 MG TAB PO SCH (08:08)
[2017-06-12] MEDS: ISOSORBIDE MONONITRATE(SR)60 MG TAB PO SCH (08:08)
--- NOTE | 2017-06-12 09:18 | PDOCDIS ---
Discharge Instructions DIAGNOSIS Discharge Diagnosis ACS. CONDITION Patient Condition: Stable HOME CARE INSTRUCTIONS: Special Diet: Low Fat Low Cholestrol 2 gm sod FOLLOW UP/APPOINTMENTS Follow-up Plan Tl Emery MD Specialty Cardiology Office Address [id number] [address] Office OTHER ORDERS: Other Orders: 1. Take medications as per prescription. Never stop taking aspirin and Plavix unless you discuss with your Dr. certified lactation counselor. 2. Take a low-cholesterol diet. 3. Activities as tolerated. 4. Follow-up with cardiology in 2 weeks. 5. Please call 911 or go to the nearest emergency room if you have any chest pain. REDDY NUNEZ NP Jun 12, 2017 09:18
[2017-06-12] MEDS ORDERED: CARV12.579 PO (09:19)
--- NOTE | 2017-06-12 16:20 | QN ---
Documentation Job number: [id number] Comment DC Summary dictated. REDDY NUNEZ NP Jun 12, 2017 16:20
--- NOTE | 2017-06-13 08:32 | DS ---
DATE OF ADMISSION: 06/10/2017 DATE OF DISCHARGE: 06/12/2017 FINAL DIAGNOSES: 1. Acute coronary syndrome. Status post left heart catheterization and angioplasty along with successful stent placement. 2. Coronary artery disease with multivessel involvement. Status post multivessel percutaneous coronary intervention. 3. Essential hypertension. 4. Dyslipidemia. 5. Morbid obesity 6. Possible underlying obstructive sleep apnea. CONSULTANTS: Tl Emery MD, cardiology. HOSPITAL COURSE: This is a 47-year-old male with past medical history of CAD status post PCI at [facility] in the recent past who also has underlying essential hypertension and dyslipidemia, who came to the emergency room with chief complaint of left-sided chest pain radiating down the left arm. The patient denied any vomiting, diaphoresis, nausea, abdominal pain. Provided the patient's history of present illness and his comorbidities, a clinical decision was made to admit the patient to inpatient setting to have him further evaluated. The patient was admitted to inpatient telemetry floor. Cardiology consult was obtained. The patient's manager domestic evaluated the patient and as per the manager domestic he has a known history of multivessel disease and he is status post PCI to left circumflex at [facility]. Consequently, the patient was taken to the laborer rags and the patient underwent left heart catheterization. The patient underwent a complex PTCA and stenting of proximal RCA, distal RCA, along with PTCA and stenting of JANEEN and PTCA of ostial and proximal PDA. Postprocedure the patient was transferred to intensive care unit. The patient was monitored in the intensive care unit. The patient had some right femoral area bleeding after the left heart catheterization. This has been resolved with application of pressure. The patient was maintained on dual antiplatelet therapy that he was already on. The patient's antihypertensives were adjusted to obtain optimal blood pressure control. The patient has underlying dyslipidemia. He was maintained on statins. The patient is morbidly obese with a BMI of 36.9 kg/m squared. The patient's hemoglobin A1c was 5.5. The patient's thyroid function was within normal limits. The patient was advised on weight reduction. The patient also possibly has underlying obstructive active sleep apnea. Weight reduction was advised. The patient had a stable hospital course. The patient was cleared by cardiology to be discharged home. The patient denied any complaints at the time of discharge. DISPOSITION/PLAN: The patient will be discharged home today. He was instructed to take medications as per prescription and not to stop taking aspirin and Plavix unless he talks to his manager domestic. He was instructed to follow a low-cholesterol diet. He was instructed to resume activities as tolerated. He was instructed to follow up with his manager domestic in 2 weeks. He was instructed to call 911 or go to the nearest emergency room if he has any chest pain. The patient verbalized understanding of discharge instructions. DISCHARGE CONDITION: Stable. DISCHARGE MEDICATIONS: 1. Aspirin 81 mg p.o. daily. 2. Plavix 75 mg p.o. daily. 3. Coreg 12.5 mg p.o. b.i.d. 4. Atorvastatin 40 mg p.o. daily. 5. Isosorbide mononitrate 60 mg p.o. daily. 6. Lisinopril 40 mg p.o. daily. PERTINENT LAB AND PROCEDURES: 1. Left heart catheterization with complex but successful PTCA and stenting of proximal RCA using Synergy drug-eluting stent, distal RCA using [place] drug-eluting stent. Complex but successful PTCA stenting of the JANEEN using Harrison drug-eluting stent. PTCA of ostial and proximal PDA. 2. 2D echocardiogram. Ejection fraction of 60 percent. Estimated peak PA systolic pressure of 23 mmHg. 3. Latest CBC; WBC 10.4, hemoglobin 12.4, hematocrit 39.5, platelet count 191,000. 4. Latest BMP; sodium 145, potassium 4.0, chloride 106, carbon dioxide 27, anion gap 15, BUN 12, creatinine 1.05, glucose 95. 5. Fasting lipid panel; triglycerides 122, total cholesterol 114, LDL 69, HDL 21. At this time I would like to thank Dr. Emery for seeing the patient, doing the necessary procedures, and providing clinical recommendations. The case and management of this patient was fully discussed with Dr. Dawkins. Approximately 40 minutes was spent on coordinating the discharge of this patient. Dictated By: Devonte Russo NP /ruth/salvador /Document#: [id number] MIRA
--- NOTE | 2017-06-13 18:28 | RADRPT ---
Vent Rate: 68 bpm RR Interval: 0 msec VA Interval: 176 msec QRS Duration: 108 msec QT Interval: 396 msec QTC Interval: 421 msec P-R-T [place]: 49 - 23 - 52 degrees Normal sinus rhythm Normal ECG Electronically Signed By: Sylvester Taveras [id number]
== END 2017-06-12 11:30 | disposition home or self-care (01) | DRG 246 ==
LOC: E/R 16:12 → TEL 19:35 → ICU 06-11 07:09
PROVIDERS: ADMIT Family Medicine; ATTEND Family Medicine
PROC: B2111ZZ Fluoroscopy of Multiple Coronary Arteries using Low Osmolar Contrast (ICD-10-PCS; 2017-06-11)
PROC: 027237Z Dilation of Coronary Artery, Three Arteries with Four or More Drug-eluting Intraluminal Devices, Percutaneous Approach (ICD-10-PCS; principal; 2017-06-11 07:30)
PROC: 4A023N7 Measurement of Cardiac Sampling and Pressure, Left Heart, Percutaneous Approach (ICD-10-PCS; 2017-06-11 07:30)
DX: I25.10 Atherosclerotic heart disease of native coronary artery without angina pectoris (principal); I24.9 Acute ischemic heart disease, unspecified; E66.01 Morbid (severe) obesity due to excess calories; I10 Essential (primary) hypertension; E78.5 Hyperlipidemia, unspecified; Z68.36 Body mass index [BMI] 36.0-36.9, adult; Z95.5 Presence of coronary angioplasty implant and graft; G47.33 Obstructive sleep apnea (adult) (pediatric); Z79.82 Long term (current) use of aspirin
CPT/HCPCS: 36415; 71010; 80048; 80053; 80061; 82550; 82553; 82962; 83036; 83735; 83880; 84439; 84443; 84484; 85025; 85610; 87081; 93005; 93306; 93458; C1874; C1887; C1894; C9600; J0583; J1644; J2250; J3010; J7030; Q9967